=== PATIENT | female | born 1965 | race Caucasian/White ===

== ENCOUNTER → 2023-12-20 07:42 | Outpatient (REF) | payer OTHER, SELFPAY | LOC: WDC 07:42 | PROVIDERS: ATTENDING PHYSICIAN Obstetrics & Gynecology; FAMILY PHYSICIAN Family Medicine | DX: Z12.31 Encounter for screening mammogram for malignant neoplasm of breast (principal) | CPT/HCPCS: 77063; 77067 ==

== ENCOUNTER → 2024-04-13 10:11 | Outpatient (REF) | payer OTHER, SELFPAY | LOC: HWRAD 10:11 | PROVIDERS: ATTENDING PHYSICIAN Family Medicine | DX: M54.50 Low back pain, unspecified (principal); R35.0 Frequency of micturition | CPT/HCPCS: 76770 ==

== ENCOUNTER 2024-05-15 06:24 | Day surgery (SDC) | payer OTHER, SELFPAY ==
[2024-05-11 08:09] VITALS: BMI 32.4
[2024-05-15] VITALS (11 sets, daily range): BP systolic 109–147; BP diastolic 66–82; BMI 32.4
[2024-05-15] MEDS: TYLENOL 1000 MG PO (11:52)
[2024-05-15] MEDS: IC GREEN 2.5 MG IV (11:52)
[2024-05-15] MEDS: VANCOCIN 300 ML IV (11:53)
[2024-05-15] MEDS: VANCOCIN 300 MG IV (11:53)
[2024-05-15] MEDS: NORMOSOL-R/PLASMALYTE-A 1000 IV (11:53)
--- NOTE | 2024-05-15 13:01 | OR.RPT ---
Operative Report
Operative Report
Primary Surgeon: Cassi
Assisting: Aleta CHANDLER
Pre-op Diagnosis: Biliary colic
Post-op Diagnosis: Chronic calculous cholecystitis
Procedure Performed: Robot assisted laparoscopic cholecystectomy
Anesthesia Type: GETA
Specimen / Cultures: Gallbladder
Estimated Blood Loss: 10cc
Complications: None immediate
Operative Findings: Floppy gallbladder with mild surrounding fibrosis, mildly thickened wall and filmy omental adhesions, fatty soft liver
Date of Surgery:� 05/15/24
Indications: This 59F developed right upper quadrant pain. Work-up showed gallstones, normal liver enzymes and no ductal dilation. Laparoscopic cholecystectomy with robotic assist was elected.
Description of procedure: The patient was placed on the operating table in the supine position. General anesthesia was induced. A time-out was completed verifying correct patient, procedure, site, positioning, and special equipment prior to
beginning this procedure. An orogastric tube was placed. The abdomen was prepped and draped in the usual sterile fashion. A stab incision was made in left upper quadrant and the Veress needle was inserted. Proper position was confirmed by aspiration
and saline meniscus test. The abdomen was insufflated with carbon dioxide to a pressure of 12mmHg. The patient tolerated insufflation well.
A 8mm trocar was then inserted above the umbilicus. The laparoscope was inserted and the abdomen inspected. No injuries from initial trocar placement or Veress needle insertion were noted. Additional 8mm trocars were then inserted in the following
locations: two in the right lower quadrant and to the left of the umbilicus and just above. The abdomen was inspected and no abnormalities were found. The table was placed in the reverse Trendelenburg position with the right side up. The dome of the
gallbladder was grasped with an atraumatic grasper and retracted over the dome of the liver. The infundibulum was then grasped with an atraumatic grasper and retracted toward the right lower quadrant. This maneuver exposed Calot�s triangle. The
peritoneum overlying the gallbladder infundibulum was then incised and the cystic duct and cystic artery identified and circumferentially dissected so that a clear view of the liver was achieved through a window between the cystic duct an cystic
artery. At this time, the only two structures going into the gallbladder were the cystic artery and cystic duct. The CBD was identified with ICG and protected.
The cystic duct was then doubly clipped and divided. The cystic artery was controlled with bipolar and divided. The gallbladder was then dissected from its peritoneal attachments by electrocautery. The gallbladder was removed using an endoscopic
retrieval bag placed through the umbilical port. The gallbladder was passed off the table as a specimen. The gallbladder fossa was closely inspected. There was no evidence of bleeding from the gallbladder fossa or cystic artery or leakage of the
bile from the cystic duct stump. The umbilical trocar site was closed at the fascial level with 2-0 PDS. Secondary trocars were removed under direct vision and noted to be hemostatic. The abdomen was allowed to collapse. The skin was closed with
subcuticular sutures of 4-0 monocryl and topical skin adhesive. The orogastric tube was removed.
The patient tolerated the procedure well and was taken to the postanesthesia care unit in stable condition.
[2024-05-15] MEDS: DILAUDID 0.25 MG IV ×2 (13:41→14:00)
== END 2024-05-15 15:15 | disposition home or self-care (01) ==
LOC: SDS 06:24
PROVIDERS: ATTENDING PHYSICIAN Surgery; FAMILY PHYSICIAN Family Medicine
PROC: 8E0W4CZ Robotic Assisted Procedure of Trunk Region, Percutaneous Endoscopic Approach (ICD-10-PCS; 2024-05-15)
PROC: 0FT44ZZ Resection of Gallbladder, Percutaneous Endoscopic Approach (ICD-10-PCS; 2024-05-15)
DX: K80.10 Calculus of gallbladder with chronic cholecystitis without obstruction (principal)
CPT/HCPCS: 47562; 88304; 93005

== ENCOUNTER → 2024-12-20 06:54 | Outpatient (REF) | payer OTHER, SELFPAY | LOC: WDC 06:54 | PROVIDERS: ATTENDING PHYSICIAN Obstetrics & Gynecology; FAMILY PHYSICIAN Family Medicine | DX: Z12.31 Encounter for screening mammogram for malignant neoplasm of breast (principal) | CPT/HCPCS: 77063; 77067 ==

== ENCOUNTER → 2025-05-18 07:51 | Outpatient (REF) | payer OTHER, SELFPAY | LOC: HWRAD 07:51 | PROVIDERS: ATTENDING PHYSICIAN Obstetrics & Gynecology; FAMILY PHYSICIAN Family Medicine | DX: R29.890 Loss of height (principal) | CPT/HCPCS: 77080 ==